=== PATIENT | female | born 1965 | race Caucasian/White ===

== ENCOUNTER → 2018-02-01 15:53 | Outpatient (CLI) | payer OTHER, SELFPAY ==
--- NOTE | 2018-02-01 15:57 | BI_ITS ---
MAMMOGRAPHY - BILATERAL SCREENING 3-D ROMÁN SYNTHESIS REASON FOR EXAM: Female, 52 years old. Bilateral Screening 3-D tomosynthesis PERTINENT HISTORY: No significant family history. TECHNIQUE: 2-D mammograms and 3-D Román synthesis of the breast (s) were performed. CAD was performed. COMPARISON: January 18, 2017. FINDINGS: The breast composition is composed of scattered fibroglandular density. Scattered benign calcifications are seen. No dense spiculated masses or suspicious microcalcifications are identified. No architectural distortion is identified. There is no skin thickening or retraction. There has been no significant change since the prior study. BI/SCREENING MAMM (CAD), BILAT IMPRESSION: No mammographic signs of malignancy. Routine yearly mammograms recommended. ASSESSMENT CATEGORY: BIRADS Category 2: Benign. A letter regarding these results will be sent to the patient by the facility within 30 days. FOLLOW UP RECOMMENDATION: Yearly follow up mammogram recommended. (A) Approximately 10% of breast cancers are not detected by mammography. A normal mammogram should not delay biopsy of a clinically suspicious abnormality. Electronically Signed: Shaw Barreto MD at 8:27 EDT , Service support ,
== END ==
PROVIDERS: Family Provider Family Medicine; PCP Family Medicine; Visit Provider Family Medicine
DX: Z12.31 Encounter for screening mammogram for malignant neoplasm of breast (principal)
CPT/HCPCS: 77063; 77067

== ENCOUNTER → 2018-02-07 16:24 | Outpatient (CLI) | payer OTHER, SELFPAY ==
--- NOTE | 2018-02-07 16:29 | RAD_ITS ---
STUDY: X-RAY - LEFT SHOULDER REASON FOR EXAM: Female, 52 years old. Left shoulder pain TECHNIQUE: 4 view(s) of the shoulder. COMPARISON: None. FINDINGS: Normal glenohumeral articulation. Normal acromioclavicular joint. Normal acromion. Normal humeral head and visualized proximal humerus. The soft tissue structures are unremarkable. Normal visualized pulmonary apex. RAD/Shoulder min 2 Views IMPRESSION: Normal x-ray examination of the shoulder. Electronically Signed: Memo Brown MD at 23:55 EDT , Service support ,
--- NOTE | 2018-02-07 16:29 | RAD_ITS ---
STUDY: X-RAY - CERVICAL SPINE REASON FOR EXAM: Female, 52 years old. Left shoulder and neck pain TECHNIQUE: 1 view(s) of the cervical spine were obtained. COMPARISON: None FINDINGS: The study is limited, with only a single lateral view obtained. The cervical vertebrae appear within normal limits in size, contour, and alignment. Disc spacing appears preserved. The spinous processes and prevertebral soft tissues are within normal limits. RAD/Cerv Spine 4 or 5 Views IMPRESSION: Limited study. The cervical spine appears within normal limits on this single lateral view. Electronically Signed: Memo Brown MD at 23:53 EDT , Service support ,
== END ==
PROVIDERS: Family Provider Family Medicine; PCP Family Medicine; Visit Provider Family Medicine
DX: M54.2 Cervicalgia (principal); M25.512 Pain in left shoulder
CPT/HCPCS: 72050; 73030

== ENCOUNTER → 2018-05-07 07:49 | Outpatient (CLI) | payer OTHER, SELFPAY ==
[2018-05-07 10:20] LABS: Absolute Lymphocyte Count 1.63 X10^3/ul (0.83-4.51); Absolute Neutrophil Count 2.7 X10^3/uL (2.0-7.7); Basophil# 0.02 X10^3/uL; Basophil% 0.4 % (0-1); Eosinophil# 0.18 X10^3/uL; Eosinophils% 3.6 % (0-5); Hemoglobin 13.5 g/dl (12.0-15.0); Lymphocyte # 1.63 X10^3/ul (4.0); Lymphocyte % 32.5 % (19-41); Mean Corp Hgb Conc 33.8 g/gl (32-36); Mean Corpuscular Hgb 28.3 pg (27.0-32.0); Mean Corpuscular Volume 83.9 fL (81-99); Mean Platelet Vol. 10.4 fl (6.2-12.0); Monocyte# 0.43 X10^3/uL; Monocyte% 8.6 % (0-10); Neutrophil # 2.74 X10^3/uL (2.7-7.7); Neutrophil % 54.7 % (47-70); Platelet Count 234 K/mm3 (150-450); RBC Distribution Width SD 39.2 fl (35.1-43.9); Red Blood Count 4.77 M/mm3 (4.2-5.4)
[2018-05-07 10:26] LABS: POSITIVE COUNT NO; POSITIVE DIFFERENTIAL NO; POSITIVE MORPHOLOGY NO
[2018-05-07 10:38] LABS: AST(SGOT) 35 U/L (15-37); Alanine Aminotransfer ALT/SGPT 65 U/L (13-56); Albumin, Serum 3.9 g/dL (3.2-5.0); Alkaline Phosphatase 85 U/L (45-117); Anion Gap 9 (5-15); BUN 12 mg/dL (7-18); BUN/Creat Ratio 13.5 RATIO (10-20); Calcium,Total 8.8 mg/dL (8.5-10.1); Chloride 106 mmol/L (98-107); Cholesterol 211 mg/dL (200); Creatinine, Serum 0.89 mg/dL (0.55-1.02); EST Glomerular Filtration Rate 71 mL/min (>60); Est Glom Filt Rate - Afr Amer 85 mL/min (>60); Globulin 3.8 g/dL (2.2-4.2); Glucose 91 mg/dL (74-106); High Density Lipoprotein 46 mg/dL; Potassium 3.6 mmol/L (3.5-5.1); Protein, Total 7.7 g/dL (6.4-8.2); Sodium Level 140 mmol/L (136-145); T4 Free Direct 0.75 ng/dL (0.76-1.46); Thyroid Stim Hormone (TSH) 3.25 uIU/mL (0.358-3.74); Triglycerides 152 mg/dL; Very Low Density Lipoprotein 30 mg/dL (5-40)
[2018-05-08 08:23] LABS: T3 Total - Triiodothyronine 1.26 ng/mL (0.6-1.81)
== END ==
PROVIDERS: Family Provider Family Medicine; PCP Family Medicine; Visit Provider Family Medicine
DX: E03.9 Hypothyroidism, unspecified (principal); R53.83 Other fatigue; Z13.220 Encounter for screening for lipoid disorders
CPT/HCPCS: 36415; 80053; 80061; 84439; 84443; 84480; 85025

== ENCOUNTER 2018-05-29 17:00 | Outpatient (RCR) | payer OTHER, SELFPAY ==
--- NOTE | 2018-04-24 18:12 | HP.PTEVAL_ITS ---
Patient's Visit Information ESTRELLITA PEARSON is a 53 year old F referred to Physical Therapy by Corey Hogan with a diagnosis of L chronic shld pain, ad capsulitis, and impingement. Date of Evaluation: 04/24/18 Physical Therapist: Rosa Demarco - Visit Plan Frequency: 2x /Week Duration: 6 Weeks Plan: 2X/ week for 6 weeks for L shoulder PROM, AAROM, AROM, joint mobs with HEP. - Subjective Subjective: Pt has limited use of L shoulder... doing better since meloxicam and injection (side of arm) but it is still not great. She not sure how she injured it. SHe can not lay on the L side and she is a L side sleeper. This has been going on since DECEMBER. THere is no N&T. SHe is R handed. 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 SHe can not lift over her head and can not take hand behind back and can not ER....she has a dull tooth ache in the anter shoulder and lateral shoulder. If it is really bother her then it will hurt up to the ear. X-ray was normal. She does not feel weakness in the L shoulder. Really stiff in the morning - Pain L shoulder pain Pain Intensity (Out of 10): 3 Pain Intensity Range: 8 - Objective R handed: R 65# and L 35#. R flexion 116 degrees and L 175 degrees. R ER 69 degrees and L ER 39 degrees. R IR T8 and L PSIS. R abd 180 degrees and L 70 degrees. L PROM: tight and painful at all end ranges. No anterior shoulder tenderness to palpation. - Goals Goal 1:: I HEP Goal Time Frame: 4-6 Weeks Goal 2:: Increase L shoulder AROM to 120 degrees elevation and L4 IR, and 45 ER. At time of eval: L 175 degrees. L ER 39 degrees. L PSIS. L 70 degrees Goal Time Frame: 4-6 Weeks Goal 3:: Decrease pain to 1/10 with ADL's Goal Time Frame: 4-6 Weeks - Rehabilitation Potential Rehabilitation Potential: Good - Anticipated Interventions Patient/Client Instruction: Educate patient on: Plan of Care For the Purpose of:: To decrease pain, To decrease swelling/inflammation, To increase ROM, To increase oxygenation perfusion, To improve muscle performance and motor function, To improve ability to perform ADL's, To increase tolerance to activity/condition/position, To improve health of tissue, To decrease soft tissue restriction, To increase flexibility/ROM Therapeutic Exercise to Include: Strength training, Postural training, Flexibilty training, Passive ROM, Active ROM, Scapular Strength/Stabilization For the Purpose of:: To decrease pain, To increase ROM, To improve nutrient delivery to tissue, To improve muscle performance and motor function, To improve ability to perform ADL's, To increase tolerance to activity/condition/ position, To improve performance and independence with ADL's, To improve ability of physical actions for home/community/work/leisure, To improve health of tissue, To increase flexibility/ROM Manual Therapy Techniques to Include: Mobilization, Passive ROM, Soft tissue mobilization For the Purpose of:: To decrease pain, To decrease swelling/inflammation, To increase ROM, To improve nutrient delivery to tissue, To improve muscle performance and motor function, To improve ability to perform ADL's, To increase tolerance to activity/condition/position, To improve health of tissue, To decrease soft tissue restriction, To increase flexibility/ROM IF ES: Yes Cryotherapy (ice pack, ice massage): Yes Thermo therapy (hot pack): Yes For the Purpose of:: To decrease pain, To decrease swelling/inflammation, To increase ROM, To improve nutrient delivery to tissue, To improve muscle performance and motor function Thank you for the opportunity to evaluate your patient. For Medicare and Medicare HMO plans, please review the plan of care and approve it. It will need to be FAXED BACK to us at [phone] for Medicare purposes. Please let me know if there are questions or concerns regarding this plan of care. Physician Signature: Date:
--- NOTE | 2018-08-09 13:08 | HP.PT.NRP ---
HP - Discharge Summary (1) - Patient Information ESTRELLITA PEARSON was seen in my office for initial evaluation on 04/24/18. The following Plan of Care was established for this patient: Initial Frequency: 2x /Week Initial Duration: 6 Weeks - Anticipated Interventions Patient/Client Instruction: Educate patient on: Plan of Care For the Purpose of:: To decrease pain, To decrease swelling/inflammation, To increase ROM, To increase oxygenation perfusion, To improve muscle performance and motor function, To improve ability to perform ADL's, To increase tolerance to activity/condition/position, To improve health of tissue, To decrease soft tissue restriction, To increase flexibility/ROM Therapeutic Exercise to Include: Strength training, Postural training, Flexibilty training, Passive ROM, Active ROM, Scapular Strength/Stabilization For the Purpose of:: To decrease pain, To increase ROM, To improve nutrient delivery to tissue, To improve muscle performance and motor function, To improve ability to perform ADL's, To increase tolerance to activity/condition/position, To improve performance and independence with ADL's, To improve ability of physical actions for home/community/work/leisure, To improve health of tissue, To increase flexibility/ROM Manual Therapy Techniques to Include: Mobilization, Passive ROM, Soft tissue mobilization For the Purpose of:: To decrease pain, To decrease swelling/inflammation, To increase ROM, To improve nutrient delivery to tissue, To improve muscle performance and motor function, To improve ability to perform ADL's, To increase tolerance to activity/condition/position, To improve health of tissue, To decrease soft tissue restriction, To increase flexibility/ROM IF ES: Yes Cryotherapy (ice pack, ice massage): Yes Thermo therapy (hot pack): Yes For the Purpose of:: To decrease pain, To decrease swelling/inflammation, To increase ROM, To improve nutrient delivery to tissue, To improve muscle performance and motor function This patient was last seen in our office 05/29/18. Pertinent comments regarding their Physical therapy will appear below: DC PT as pt did not schedule additional PT. At this point I will be discontinuing this patient from physical therapy. I would be happy to see this patient again in the future if found appropriate by the physician. Thank you! Rosa Demarco
== END 2018-05-29 19:00 | disposition home or self-care (01) ==
LOC: PT 17:00
PROVIDERS: Family Provider Family Medicine; PCP Family Medicine; Visit Provider Orthopaedic Surgery
DX: M25.512 Pain in left shoulder (principal); G89.29 Other chronic pain; M75.42 Impingement syndrome of left shoulder; M75.02 Adhesive capsulitis of left shoulder
CPT/HCPCS: 97110; 97140; 97161

== ENCOUNTER → 2019-02-14 | Outpatient (CLI) | payer OTHER, SELFPAY ==
--- NOTE | 2019-02-14 15:52 | BI_ITS ---
MAMMOGRAPHY - BILATERAL SCREENING 3-D TOMOSYNTHESIS REASON FOR EXAM: Female, 53 years old. Bilateral Screening 3-D tomosynthesis PERTINENT HISTORY: Paternal aunt at age 70 with breast cancer. History of cysts and clogged milk duct in the right breast.. TECHNIQUE: 2-D mammograms and 3-D Tomosynthesis of the breast (s) were performed. CAD was performed. COMPARISON: February 01, 2018. FINDINGS: The breast composition is composed of scattered fibroglandular density. Scattered benign calcifications are seen. No dense spiculated masses or suspicious microcalcifications are identified. No architectural distortion is identified. There is no skin thickening or retraction. There has been no significant change since the prior study. BI/SCREENING MAMM (CAD), BILAT IMPRESSION: No mammographic signs of malignancy. Routine yearly mammograms recommended. ASSESSMENT CATEGORY: BIRADS Category 1: Negative. A letter regarding these results will be sent to the patient by the facility within 30 days. FOLLOW UP RECOMMENDATION: Yearly follow up mammogram recommended. (A) Approximately 10% of breast cancers are not detected by mammography. A normal mammogram should not delay biopsy of a clinically suspicious abnormality. Electronically Signed: Shaw Barreto MD at 7:58 EDT , Service support ,
== END | disposition home or self-care (01) ==
PROVIDERS: Family Provider Family Medicine; PCP Family Medicine; Referring Provider Family Medicine; Visit Provider Family Medicine
DX: Z12.31 Encounter for screening mammogram for malignant neoplasm of breast (principal)
CPT/HCPCS: 77063; 77067

== ENCOUNTER → 2019-04-03 | Outpatient (CLI) | payer OTHER, SELFPAY ==
[2019-04-03 09:56] LABS: Absolute Lymphocyte Count 1.29 X10^3/ul (0.83-4.51); Absolute Neutrophil Count 2.6 X10^3/uL (2.0-7.7); Basophil# 0.06 X10^3/uL; Basophil% 1.4 % (0-1); Eosinophil# 0.14 X10^3/uL; Eosinophils% 3.2 % (0-5); Hematocrit 40.4 % (37-47); Hemoglobin 13.9 g/dl (12.0-15.0); Lymphocyte # 1.29 X10^3/ul (4.0); Lymphocyte % 29.3 % (19-41); Mean Corp Hgb Conc 34.4 g/gl (32-36); Mean Corpuscular Hgb 28.2 pg (27.0-32.0); Mean Corpuscular Volume 81.9 fL (81-99); Mean Platelet Vol. 10.2 fl (6.2-12.0); Monocyte# 0.36 X10^3/uL; Monocyte% 8.2 % (0-10); Neutrophil # 2.55 X10^3/uL (2.7-7.7); Neutrophil % 57.7 % (47-70); Platelet Count 235 K/mm3 (150-450); RBC Distribution Width CV 13.1 % (11.6-14.6); RBC Distribution Width SD 39.4 fl (35.1-43.9); Red Blood Count 4.93 M/mm3 (4.2-5.4); White Blood Count 4.4 K/mm3 (4.4-11.0)
[2019-04-03 10:16] LABS: POSITIVE COUNT NO; POSITIVE DIFFERENTIAL NO; POSITIVE MORPHOLOGY NO
[2019-04-03 10:48] LABS: ALB/GLOB Ratio 1.1 RATIO (0.9-2.4); AST(SGOT) 34 U/L (15-37); Alanine Aminotransfer ALT/SGPT 47 U/L (13-56); Alkaline Phosphatase 101 U/L (45-117); Anion Gap 8 (5-15); BUN 12 mg/dL (7-18); BUN/Creat Ratio 13.9 RATIO (10-20); Calcium,Total 9.4 mg/dL (8.5-10.1); Chloride 105 mmol/L (98-107); Cholesterol 214 mg/dL (200); Creatinine, Serum 0.86 mg/dL (0.55-1.02); EST Glomerular Filtration Rate 73 mL/min (>60); Est Glom Filt Rate - Afr Amer 88 mL/min (>60); Free T3 2.3 pg/mL (2.18-3.98); Globulin 3.8 g/dL (2.2-4.2); Glucose 94 mg/dL (74-106); High Density Lipoprotein 47 mg/dL; Potassium 3.5 mmol/L (3.5-5.1); Protein, Total 7.8 g/dL (6.4-8.2); Sodium Level 139 mmol/L (136-145); Thyroid Stim Hormone (TSH) 3.17 uIU/mL (0.358-3.74); Triglycerides 133 mg/dL; Very Low Density Lipoprotein 27 mg/dL (5-40)
== END | disposition home or self-care (01) ==
LOC: MTLAB 07:51
PROVIDERS: Family Provider Family Medicine; PCP Family Medicine; Referring Provider Family Medicine; Visit Provider Family Medicine
DX: E03.9 Hypothyroidism, unspecified (principal); E78.5 Hyperlipidemia, unspecified; R53.83 Other fatigue; Z51.81 Encounter for therapeutic drug level monitoring
CPT/HCPCS: 36415; 80053; 80061; 84439; 84443; 84481; 85025

== ENCOUNTER → 2020-02-20 12:13 | Outpatient (CLI) | payer OTHER, SELFPAY ==
--- NOTE | 2020-02-20 12:14 | BI_ITS ---
MAMMOGRAPHY - BILATERAL SCREENING REASON FOR EXAM: Female, 54 years old. Routine annual screening examination. PERTINENT HISTORY: Aunt with breast cancer. TECHNIQUE: Digital bilateral breast román (3D mammographic acquisition) in the CC and MLO projections. 2-D mediolateral oblique (MLO) and craniocaudad (CC) views of both breasts were obtained. CAD: Full Field Digital Mammography with Computer Added Detection was performed. COMPARISON: Comparison is made with prior study February 14, 2019 and February 01, 2018. FINDINGS: Breast Composition: There are scattered areas of fibroglandular density. There are no dominant masses or suspicious calcifications. Stable benign-appearing bilateral axillary lymph nodes. No other significant abnormalities are identified. There has been no significant change since the prior study. BI/SCREEN MAMM (CAD) W/ROMÁN BILAT IMPRESSION: Stable bilateral screening mammogram. Yearly follow-up mammogram recommended. (A) ASSESSMENT CATEGORY: BIRADS Category 2: Benign. A letter regarding these results will be sent to the patient by the facility within 30 days. Approximately 10% of breast cancers are not detected by mammography. A normal mammogram should not delay biopsy of a clinically suspicious abnormality. [id number] Electronically Signed: Ishmael Moreira, at 13:44 EDT , Service support ,
== END ==
PROVIDERS: PCP Family Medicine; Referring Provider Family Medicine; Visit Provider Family Medicine
DX: Z12.31 Encounter for screening mammogram for malignant neoplasm of breast (principal)
CPT/HCPCS: 77063; 77067

== ENCOUNTER → 2020-12-20 11:39 | Outpatient (CLI) | payer OTHER, SELFPAY ==
[2020-12-20 15:29] LABS: Absolute Lymphocyte Count 1.26 X10^3/uL (0.83-4.51); Basophil# 0.03 X10^3/uL; Basophil% 0.6 % (0-1); Eosinophil# 0.13 X10^3/uL; Eosinophils% 2.7 % (0-5); Hematocrit 42.9 % (37-47); Hemoglobin 14.4 g/dL (12.0-15.0); Lymphocyte # 1.26 X10^3/ul (4.0); Lymphocyte % 26.3 % (19-41); Mean Corp Hgb Conc 33.6 g/dL (32-36); Mean Corpuscular Hgb 27.6 pg (27.0-32.0); Mean Corpuscular Volume 82.2 fL (81-99); Mean Platelet Vol. 10.8 fl (6.2-12.0); Monocyte# 0.36 X10^3/uL; Monocyte% 7.5 % (0-10); NRBC Flagged by Analyzer 0 % (0-5); Neutrophil # 3.01 X10^3/uL (2.7-7.7); Neutrophil % 62.7 % (47-70); Platelet Count 249 K/mm3 (150-450); RBC Distribution Width CV 12.2 % (11.6-14.6); RBC Distribution Width SD 37.3 fl (35.1-43.9); Red Blood Count 5.22 M/mm3 (4.2-5.4); White Blood Count 4.8 K/mm3 (4.4-11.0)
[2020-12-20 16:15] LABS: AST(SGOT) 48 U/L (15-37); Alanine Aminotransfer ALT/SGPT 94 U/L (13-56); Albumin, Serum 4.1 g/dL (3.2-5.0); Alkaline Phosphatase 109 U/L (45-117); Anion Gap 6 (5-15); BUN 10 mg/dL (7-18); BUN/Creat Ratio 13.8 RATIO (10-20); Calcium,Total 9.3 mg/dL (8.5-10.1); Chloride 105 mmol/L (98-107); Cholesterol 220 mg/dL (200); Creatinine, Serum 0.72 mg/dL (0.55-1.02); EST Glomerular Filtration Rate 88 mL/min (>60); Est Glom Filt Rate - Afr Amer 107 mL/min (>60); Free T3 2.3 pg/mL (2.18-3.98); Globulin 4.1 g/dL (2.2-4.2); Glucose 87 mg/dL (74-106); High Density Lipoprotein 42 mg/dL; Potassium 3.6 mmol/L (3.5-5.1); Protein, Total 8.2 g/dL (6.4-8.2); Sodium Level 140 mmol/L (136-145); T4 Free Direct 0.87 ng/dL (0.76-1.46); Thyroid Stim Hormone (TSH) 2.13 uIU/mL (0.358-3.74); Triglycerides 171 mg/dL; Very Low Density Lipoprotein 34 mg/dL (5-40)
== END ==
PROVIDERS: PCP Family Medicine; Referring Provider Family Medicine; Visit Provider Family Medicine
DX: E03.9 Hypothyroidism, unspecified (principal); E78.5 Hyperlipidemia, unspecified; R53.83 Other fatigue; Z51.81 Encounter for therapeutic drug level monitoring
CPT/HCPCS: 36415; 80053; 80061; 84439; 84443; 84481; 85025

== ENCOUNTER → 2021-04-11 11:24 | Outpatient (CLI) | payer OTHER, SELFPAY ==
--- NOTE | 2021-04-11 11:28 | BI_ITS ---
MAMMOGRAPHY - BILATERAL SCREENING REASON FOR EXAM: Female, 56 years old. Routine annual screening examination. PERTINENT HISTORY: Aunt with breast cancer. TECHNIQUE: Digital bilateral breast román (3D mammographic acquisition) in the CC and MLO projections. 2-D mediolateral oblique (MLO) and craniocaudad (CC) views of both breasts were obtained. CAD: Full Field Digital Mammography with Computer Added Detection was performed. COMPARISON: Comparison is made with prior study dated 02/20/2020 and 02/14/2019. FINDINGS: Breast Composition: The breasts are heterogeneously dense, which may obscure small masses. There are no dominant masses or suspicious calcifications. Stable small benign-appearing bilateral axillary lymph nodes. No other significant abnormalities are identified. There has been no significant change since the prior study. BI/SCRN MAMM (CAD)W/ROMÁN BILAT IMPRESSION: Stable bilateral screening mammogram. Yearly follow-up mammogram recommended. (A) ASSESSMENT CATEGORY: BIRADS Category 2: Benign. A letter regarding these results will be sent to the patient by the facility within 30 days. Approximately 10% of breast cancers are not detected by mammography. A normal mammogram should not delay biopsy of a clinically suspicious abnormality. [id number] Electronically Signed: Ishmael Moreira MD at 12:33 EDT , Service support ,
== END ==
PROVIDERS: PCP Family Medicine; Referring Provider Family Medicine; Visit Provider Family Medicine
DX: Z12.31 Encounter for screening mammogram for malignant neoplasm of breast (principal)
CPT/HCPCS: 77063; 77067

== ENCOUNTER 2021-10-19 15:38 | Outpatient (CLI) | payer OTHER, SELFPAY ==
--- NOTE | 2021-10-19 15:44 | RAD_ITS ---
History: COUGH, POST COVID EXAMINATION/TECHNIQUE: XR Chest 2 Views: COMPARISON: None FINDINGS: LINES/DEVICES: None. LUNGS: Patchy airspace opacification throughout both lungs consistent with pneumonia and compatible with Covid infection. No pneumothorax. MEDIASTINUM AND CARDIOVASCULAR STRUCTURES: Cardiac silhouette not enlarged. Central airways and mediastinal contour are unremarkable. BONES AND SOFT TISSUES: Unremarkable. RAD/Chest PA and Lateral IMPRESSION: Bilateral pneumonia. at 1556 Reported and signed by: Jeromy Contreras MD Electronically Signed: Jeromy Contreras MD at 15:55 EST Tel , Service support ,
== END 2021-10-19 23:59 | disposition short-term general hospital (02) ==
PROVIDERS: PCP Family Medicine; Referring Provider Family Medicine; Visit Provider Family Medicine
DX: U07.1 COVID-19 (principal); R05.9 Cough, unspecified
CPT/HCPCS: 71046

== ENCOUNTER 2021-10-27 08:11 | Outpatient (CLI) | payer OTHER, SELFPAY | END 2021-10-27 23:59 | disposition short-term general hospital (02) | PROVIDERS: Visit Provider Family Medicine | DX: Z20.828 Contact with and (suspected) exposure to other viral communicable diseases (principal) | CPT/HCPCS: 87635; U0003; U0005 ==

== ENCOUNTER 2022-01-16 07:47 | Outpatient (CLI) | payer OTHER, SELFPAY ==
[2022-01-16 08:13] LABS: Absolute Lymphocyte Count 1.62 X10^3/uL (0.83-4.51); Absolute Neutrophil Count 2.9 X10^3/uL (2.0-7.7); Basophil# 0.03 X10^3/uL; Basophil% 0.6 % (0-1); Eosinophil# 0.13 X10^3/uL; Eosinophils% 2.5 % (0-5); Hematocrit 42.5 % (37-47); Hemoglobin 14.8 g/dL (12.0-15.0); Lymphocyte # 1.62 X10^3/ul (0.83-4.51); Lymphocyte % 31.5 % (19-41); Mean Corp Hgb Conc 34.8 g/dL (32-36); Mean Corpuscular Volume 83.3 fL (81-99); Mean Platelet Vol. 10.3 fl (6.2-12.0); Monocyte# 0.46 X10^3/uL; Monocyte% 8.9 % (0-10); NRBC Flagged by Analyzer 0 % (0-5); Neutrophil # 2.89 X10^3/uL (2.7-7.7); Neutrophil % 56.1 % (47-70); Platelet Count 266 K/mm3 (150-450); RBC Distribution Width CV 12.2 % (11.6-14.6); RBC Distribution Width SD 37.2 fl (35.1-43.9); White Blood Count 5.2 K/mm3 (4.4-11.0)
[2022-01-16 08:44] LABS: ALB/GLOB Ratio 1.1 RATIO (0.9-2.4); AST(SGOT) 52 U/L (15-37); Alanine Aminotransfer ALT/SGPT 95 U/L (13-56); Albumin, Serum 4.1 g/dL (3.2-5.0); Alkaline Phosphatase 89 U/L (45-117); Anion Gap 7 (5-15); BUN 12 mg/dL (7-18); BUN/Creat Ratio 15.3 RATIO (10-20); Calcium,Total 9.2 mg/dL (8.5-10.1); Chloride 105 mmol/L (98-107); Cholesterol 216 mg/dL (200); Creatinine, Serum 0.78 mg/dL (0.55-1.02); EST Glomerular Filtration Rate 80 mL/min (>60); Est Glom Filt Rate - Afr Amer 97 mL/min (>60); Free T3 3.2 pg/mL (2.18-3.98); Globulin 3.9 g/dL (2.2-4.2); Glucose 115 mg/dL (74-106); High Density Lipoprotein 48 mg/dL; Potassium 3.9 mmol/L (3.5-5.1); Sodium Level 139 mmol/L (136-145); T4 Free Direct 0.88 ng/dL (0.76-1.46); Thyroid Stim Hormone (TSH) 0.31 uIU/mL (0.358-3.74); Triglycerides 171 mg/dL; Very Low Density Lipoprotein 34 mg/dL (5-40)
[2022-01-16 08:51] LABS: Vitamin B12 591 pg/mL (211-911)
[2022-01-17 16:09] LABS: Thyroid Peroxidase AB 8 IU/mL (0-34)
[2022-01-17 16:25] LABS: Thyroglobulin Antibody < 1.0 IU/mL (0.0-0.9)
== END 2022-01-16 23:59 | disposition home or self-care (01) ==
LOC: PAVLAB 07:49
PROVIDERS: PCP Family Medicine; Referring Provider Family Medicine; Visit Provider Family Medicine
DX: E03.9 Hypothyroidism, unspecified (principal); E53.8 Deficiency of other specified B group vitamins; E78.5 Hyperlipidemia, unspecified; Z51.81 Encounter for therapeutic drug level monitoring
CPT/HCPCS: 36415; 80053; 80061; 82607; 84439; 84443; 84481; 85025; 86376; 86800

== ENCOUNTER → 2022-04-04 | Outpatient (CLI) | payer OTHER, SELFPAY ==
[2022-04-04 08:54] LABS: Free T3 5.7 pg/mL (2.18-3.98); T4 Free Direct 1.52 ng/dL (0.76-1.46); Thyroid Stim Hormone (TSH) < 0.01 uIU/mL (0.358-3.74)
== END | disposition home or self-care (01) ==
LOC: PAVLAB 07:48
PROVIDERS: PCP Family Medicine; Referring Provider Family Medicine; Visit Provider Family Medicine
DX: E03.9 Hypothyroidism, unspecified (principal)
CPT/HCPCS: 36415; 84439; 84443; 84481

== ENCOUNTER → 2022-04-13 | Outpatient (CLI) | payer OTHER, SELFPAY ==
--- NOTE | 2022-04-13 10:13 | BI_ITS ---
MAMMOGRAPHY - BILATERAL SCREENING REASON FOR EXAM: Female, 57 years old. Routine annual screening examination. PERTINENT HISTORY: Aunt with breast cancer. TECHNIQUE: Digital bilateral breast román (3D mammographic acquisition) in the CC and MLO projections. 2-D mediolateral oblique (MLO) and craniocaudad (CC) views of both breasts were obtained. CAD: Full Field Digital Mammography with Computer Added Detection was performed. COMPARISON: Comparison is made with prior study dated 04/11/2021 and 02/20/2020. FINDINGS: Breast Composition: The breasts are heterogeneously dense, which may obscure small masses. There are no dominant masses or suspicious calcifications. Stable small benign-appearing bilateral axillary vessels. No other significant abnormalities are identified. There has been no significant change since the prior study. BI/SCRN MAMM (CAD)W/ROMÁN BILAT IMPRESSION: Stable bilateral screening mammogram. Yearly follow-up mammogram recommended. (A) ASSESSMENT CATEGORY: BIRADS Category 2: Benign. A letter regarding these results will be sent to the patient by the facility within 30 days. Approximately 10% of breast cancers are not detected by mammography. A normal mammogram should not delay biopsy of a clinically suspicious abnormality. [id number] Electronically Signed: Ishmael Moreira MD at 11:02 EDT ,
== END | disposition home or self-care (01) ==
LOC: OPBI 10:10
PROVIDERS: PCP Family Medicine; Referring Provider Family Medicine; Visit Provider Family Medicine
DX: Z12.31 Encounter for screening mammogram for malignant neoplasm of breast (principal)
CPT/HCPCS: 77063; 77067

== ENCOUNTER → 2023-04-20 | Outpatient (CLI) | payer OTHER, SELFPAY ==
--- NOTE | 2023-04-20 13:39 | BI_ITS ---
MAMMOGRAPHY - BILATERAL SCREENING REASON FOR EXAM: Female, 58 years old. Routine annual screening examination. PERTINENT HISTORY: Aunt with breast cancer. TECHNIQUE: Digital bilateral breast román (3D mammographic acquisition) in the CC and MLO projections. 2-D mediolateral oblique (MLO) and craniocaudad (CC) views of both breasts were obtained. CAD: Full Field Digital Mammography with Computer Added Detection was performed. COMPARISON: Comparison is made with prior study April 13, 2022 and April 11, 2021. FINDINGS: Breast Composition: The breasts are heterogeneously dense, which may obscure small masses. There are no dominant masses or suspicious calcifications. Stable benign-appearing bilateral axillary lymph nodes. No other significant abnormalities are identified. There has been no significant change since the prior study. BI/SCRN MAMM (CAD)W/ROMÁN BILAT IMPRESSION: Stable bilateral screening mammogram. Yearly follow-up mammogram recommended. (A) ASSESSMENT CATEGORY: BIRADS Category 1: Negative. A letter regarding these results will be sent to the patient by the facility within 30 days. Approximately 10% of breast cancers are not detected by mammography. A normal mammogram should not delay biopsy of a clinically suspicious abnormality. [id number] Electronically Signed: Ishmael Moreira MD at 8:35 EDT ,
== END | disposition home or self-care (01) ==
LOC: OPBI 13:37
PROVIDERS: PCP Family Medicine; Visit Provider Family Medicine
DX: Z12.31 Encounter for screening mammogram for malignant neoplasm of breast (principal)
CPT/HCPCS: 77063; 77067

== ENCOUNTER → 2023-10-16 | Outpatient (CLI) | payer OTHER, SELFPAY ==
--- OUTSIDE RECORDS SUMMARY | 2023-10-16 13:00 | XMS RPT_ITS | CCD ---
Author Name Unknown Address [address] [place] [address] Organization [facility] Care Team Providers Care Cotton Jammer Name Role Phone Cassie Aponte LPN Unavailable Unavailab Cassie Duncan LPN Unavailable Unavailab Prince Aguilar Unavailable Prince Ayers Unavailable [phone] Cassie Aponte LPN Unavailable Unavailab Francy Pacheco DO Primary Care Provider [phone] Francy Will DO Primary Care Provider SHAHBAZ TA Attending Unavailable SELF Referring Unavailable FRANCY WILL Primary Care Unavailable Allergies Allergy Classification Reported Allergen(s) Allergy Type Date of Onset Reaction(s) Facility (5 sources) acetaminophen / HYDROcodone Drug Allergy 6 lip swelling, itching [facility] Work Phone: (5 sources) cephalexin Drug Allergy Deep seated yeast infection [facility] Work Phone: (8 sources) codeine; Translations: [CODEINE] Drug Allergy 6 [facility] Work Phone: (5 sources) Shellfish; Translations: [SHELLFISH] food allergy 0 [facility] Work Phone: (5 sources) Shrimp product; Translations: [SHRIMP] food allergy 0 [facility] Work Phone: (8 sources) Tree; Translations: [TREES] drug allergy 6 itching, hives, breathing problems [facility] Work Phone: (5 sources) BAND-AID MEDICATED STRIPS drug allergy 6 Skin itching, swelling, seeping [facility] Work Phone: (5 sources) ADHESIVE PAPER drug allergy 6 Skin itching, swelling, seeping [facility] Work Phone: (5 sources) GRASS drug allergy 6 Itching, hives breathing problems [facility] Work Phone: (5 sources) WHOLE GRAIN; Translations: [WHOLE GRAIN] food allergy 0 [facility] Work Phone: (5 sources) NOVOCAIN drug allergy 0 [facility] Work Phone: (5 sources) IODINE TINCTURE drug allergy 7 [facility] Work Phone: (3 sources) Adhesive Tape; Translations: [ADHESIVE TAPE (ROSINS)] Propensity to adverse reactions 6 [facility] Work Phone: (3 sources) Cephalexin; Translations: [CEPHALEXIN] Drug Allergy 4 Rash [facility] (3 sources) Ciprofloxacin; Translations: [CIPROFLOXACIN] Drug Allergy 0 Hives [facility] (3 sources) Dust; Translations: [DUST] Propensity to adverse reactions 6 [facility] Work Phone: (3 sources) Grass pollen; Translations: [GRASS POLLEN] Propensity to adverse reactions 6 [facility] Work Phone: (3 sources) Wheat flour; Translations: [WHEAT FLOUR] Propensity to adverse reactions 6 [facility] Work Phone: [phone] (2 sources) shell fish [Other] Propensity to adverse reactions 8 [facility] Work Phone: (2 sources) SHRIMP [Other] Propensity to adverse reactions 6 [facility] Work Phone: (1 source) OTHER; Translations: [OTHER] Propensity to adverse reactions (disorder) 8 [facility] Medications Completed/Discontinued Medications Medication Drug Class(es) Dates Sig (Normalized) Sig (Original) amoxicillin 875 mg / clavulanate 125 mg oral tablet (15 sources) Penicillin-class Antibacterial Start: 02-14-2012 End: 12-30-2015 take 1 tablet by mouth twice daily AUGMENTIN 875-125 MG TABS One tablet by mouth twice daily. AMOXICILLIN-POT CLAVULANATE [id number] Francy Will, DO Problems Active Problems Problem Classification Problem Date Documented Da te Episodic/Chronic Other nutritional; endocrine; and metabolic disorders (3 sources) Obese class I; Translations: [Obesity, unspecified] Onset: 04-18-2022 Chronic Other upper respiratory disease (7 sources) Allergic rhinitis; Translations: [Allergic rhinitis, unspecified] Onset: 12-05-2007 10-29-2009 Chronic Past or Other Problems Problem Classification Problem Date Documented Date Episodic/Chronic Allergic reactions (4 sources) Allergy to food; Translations: [Allergy to other foods] Onset: 12-05-2007 12-05-2007 Episodic Other female genital disorders (2 sources) Cervical intraepithelial neoplasia grade 2; Translations: [Moderate cervical dysplasia] Onset: 04-29-2013 10-10-2021 Episodic Other non-traumatic joint disorders (1 source) Shoulder pain; Translations: [Pain in left shoulder] Onset: 05-29-2018 07-23-2018 Episodic Other non-traumatic joint disorders (1 source) Pain in left shoulder; Translations: [Pain in joint, shoulder region] Onset: 05-29-2018 07-23-2018 Episodic Spondylosis; intervertebral disc disorders; other back problems (10 sources) Lumbar radiculopathy; Translations: [Acute low back pain] Onset: 05-23-2016 05-23-2016 Episodic Sprains and strains (20 sources) Strain of extensor muscle, fascia and tendon of right middle finger at forearm level, initial encounter; Translations: [Strain of unspecified muscle, fascia and tendon at wrist and hand level, right hand, initial encounter] Onset: 08-06-2017 08-08-2017 Episodic Superficial injury; contusion (10 sources) Contusion of right knee, initial encounter; Translations: [Contusion of left knee, initial encounter] Onset: 08-06-2017 08-06-2017 Episodic Results Test Name Value Interpretation Reference Range Facil ity Vital Signs Date Time Vital Sign Value Performing Clinician Adánparveen brian 04-18-2023 14:02-0400 Body height 157.5 cm Shahbaz Ta MD Work Phone: [facility] 04-18-2023 14:02-0400 Body weight 76.2 kg Shahbaz Ta MD Work Phone: [facility] 04-18-2023 14:02-0400 Diastolic blood pressure 68 mm[Hg] Shahbaz Ta MD Work Phone: [facility] 04-18-2023 14:02-0400 Systolic blood pressure 122 mm[Hg] Shahbaz Ta MD Work Phone: [facility] 04-18-2022 16:06-0400 Body height 157.5 cm Shahbaz Ta MD Work Phone: [facility] 04-18-2022 16:06-0400 Body weight 74.84 kg Shahbaz Ta MD Work Phone: [facility] 04-18-2022 16:06-0400 Diastolic blood pressure 72 mm[Hg] Shahbaz Ta MD Work Phone: [facility] 04-18-2022 16:06-0400 Systolic blood pressure 126 mm[Hg] Shahbaz Ta MD Work Phone: [facility] 08-27-2017 11:29-0500 BMI (Body Mass Index) 28.38 kg/m2 Cassie Aponte LPN [facility] Work Phone: 08-27-2017 11:29-0500 Body Temperature 98.5 [degF] Cassie Aponte LPN [facility] Work Phone: 08-27-2017 11:29-0500 BP Diastolic 76 mm[Hg] Cassie Aponte LPN [facility] Work Phone: 08-27-2017 11:29-0500 BP Systolic 122 mm[Hg] Cassie Aponte LPN [facility] Work Phone: 08-27-2017 11:29-0500 Height 160.02 cm Cassie Aponte LPN [facility] Work Phone: 08-27-2017 11:29-0500 Pulse (Heart Rate) 88 /min Cassie Aponte LPN [facility] Work Phone: 08-27-2017 11:29-0500 Respiratory Rate 13 /min Cassie Aponte LPN [facility] Work Phone: 08-27-2017 11:29-0500 Weight 72.67 kg Cassie Aponte LPN [facility] Work Phone: 08-13-2017 11:36-0400 Pulse (Heart Rate) 80 /min Prince GIFFORD [facility] Work Phone: 08-13-2017 11:36-0400 Respiratory Rate 14 /min Prince GIFFORD [facility] Work Phone: 08-06-2017 13:42-0400 Body height 160.02 cm Cassie Aponte LPN [facility] Work Phone: 08-06-2017 13:42-0400 Body mass index (BMI) [Ratio] 28.8 kg/m2 Cassie Aponte LPN [facility] Work Phone: 08-06-2017 13:42-0400 Body temperature 98.5 [degF] Cassie Aponte LPN [facility]onna Work Phone: 08-06-2017 13:42-0400 Body weight 73.76 kg Cassie Aponte LPN [facility] Work Phone: 08-06-2017 13:42-0400 Diastolic blood pressure 78 mm[Hg] Cassie Aponte LPN [facility] Work Phone: 08-06-2017 13:42-0400 Heart rate 88 /min Cassie Aponte LPN [facility] Work Phone: 08-06-2017 13:42-0400 Respiratory rate 14 /min Cassie Aponte LPN [facility]onna Work Phone: 08-06-2017 13:42-0400 Systolic blood pressure 120 mm[Hg] Cassie Aponte LPN [facility] Work Phone: 08-06-2017 13:42-0400 Weight 73.76 kg Prince GIFFORD [facility] Work Phone: 08-06-2009 14:15-0400 Body height 160.02 cm Cassie Aponte LPN [facility] Work Phone: 08-06-2009 14:15-0400 Body surface area Derived from formula 1.76 m2 Cassie Aponte LPN [facility] Work Phone: 08-06-2009 14:15-0400 Body weight 72.39 kg Cassie Aponte LPN [facility] Work Phone: 08-06-2009 14:15-0400 Weight 72.39 kg Prince GIFFORD [facility] Work Phone: Encounters Encounter Date Encounter Type Care Provider Facility Start: 04-18-2023 End: 04-18-2023 ambulatory SHAHBAZ TA Facility:[facility] Start: 04-18-2023 End: 04-18-2023 Patient encounter procedure Shahbaz Ta MD Work Phone: OB/Gynecology Procedures Date Procedure Procedure Detail Performing Clinician Start: 04-13-2022 Mammography Shahbaz wright MD Work Phone: Start: 08-06-2017 End: 08-06-2017 Documentation of current medications Cassie Aponte LPN Start: 05-23-2016 End: 05-23-2016 Therapeutic prophylactic/dx injection subq/im Valencia Lakhani [facility] Work Phone: Start: 05-23-2016 End: 05-23-2016 Toradol 30 mg Valencia Lakhani [facility] Work Phone: Start: 05-23-2016 End: 05-23-2016 Ketorolac tromethamine inj Valencia hernandez [facility] Work Phone: Start: 05-23-2016 End: 05-23-2016 Therapeutic prophylactic/dx injection subq/im Valencia Lakhani [facility] Work Phone: Start: 06-29-2014 Colonoscopy Shahbaz wright MD Work Phone: Plan of Treatment Date Care Activity Detail Author Start: 06-29-2024 Colonoscopy COLONOSCOPY [facility] Start: 06-29-2024 COLORECTAL CANCER SCREENING COLORECTAL CANCER SCREENING [facility] Start: 07-23-2023 HPV TESTING HPV TESTING [facility] Start: 07-23-2023 PAP TESTING PAP TESTING [facility] Start: 06-15-2023 Influenza vaccination INFLUENZA (#1) [facility] Start: 04-13-2023 Mammography MAMMOGRAM [facility] Start: 10-15-2022 DEPRESSION ASSESSMENT DEPRESSION ASSESSMENT [facility] Start: 06-15-2022 Influenza vaccination INFLUENZA (#1) [facility] Start: 08-27-2017 End: 08-27-2017 Appointment Appointment [facility] Work Phone: Start: 08-13-2017 End: 08-13-2017 Appointment Appointment [facility] Work Phone: Start: 08-06-2017 End: 08-06-2017 Patient encounter procedure Appointment [facility] Work Phone: Start: 08-06-2017 End: 08-06-2017 Radex hand minimum 3 views X-Ray, Hand [facility] Work Phone: Start: 08-06-2017 End: 08-06-2017 Radex spine lumbosacral minimum 4 views X-Ray, Spine, Lumbosacral 4 views [facility] Work Phone: Start: 08-06-2017 End: 08-06-2017 Radex wrist complete minimum 3 views X-Ray, Wrist [facility] Work Phone: Start: 08-06-2017 End: 08-06-2017 Radex hand minimum 3 views X-Ray, Hand [facility] Work Phone: Start: 08-06-2017 End: 08-06-2017 Radex spine lumbosacral minimum 4 views X-Ray, Spine, Lumbosacral 4 views [facility] Work Phone: Start: 08-06-2017 End: 08-06-2017 Radex wrist complete minimum 3 views X-Ray, Wrist [facility] Work Phone: Start: 05-23-2016 End: 05-23-2016 Physical Therapy General Physical Therapy [facility], [address] [place] [address], [id number] [facility] Work Phone: Start: 05-23-2016 End: 05-23-2016 Radex spine lumbosacral minimum 4 views X-Ray, Spine, Lumbosacral 2-3 views [facility] Work Phone: Start: 05-23-2016 End: 05-23-2016 Physical Therapy General Physical Therapy [facility], [address] [place] [address], [id number] [facility] Work Phone: Start: 05-23-2016 End: 05-23-2016 Radex spine lumbosacral minimum 4 views X-Ray, Spine, Lumbosacral 2-3 views [facility] Work Phone: Start: 01-14-2016 Urine microalbumin profile DTAP,TDAP,TD (2 - Tdap) [facility] Start: 2014 SHINGRIX VACCINE (1 of 2) SHINGRIX VACCINE (1 of 2) [facility] Start: 12-12-2012 LIPID SCREEN LIPID SCREEN [facility] Start: 2009 COLOGUARD (FIT-DNA) COLOGUARD (FIT-DNA) [facility] Start: [address] COLONOGRAPHY [facility] Start: 2009 DIABETES SCREEN DIABETES SCREEN [facility] Start: 2009 FECAL OCCULT BLOOD FECAL OCCULT BLOOD [facility] Start: 05-18-2009 SIGMOIDOSCOPY SIGMOIDOSCOPY [facility] Start: 1982 HEPATITIS C SCREENING HEPATITIS C SCREENING [facility] Start: 1982 HIV SCREENING HIV SCREENING [facility] Start: 1976 Adult depression screening assessment DEPRESSION SCREENING [facility] Start: 1964 COVID-19 VACCINE (#1) COVID-19 VACCINE (#1) [facility] Immunizations Immunization Date Immunization Notes Care Provider Fa cility 08-23-2020 influenza, seasonal, injectable Shahbaz Ta MD Work Phone: [facility] Work Phone: 07-30-2019 influenza, seasonal, injectable Shahbaz Ta MD Work Phone: [facility] Work Phone: 07-24-2018 influenza, seasonal, injectable Shahbaz Ta MD Work Phone: [facility] Work Phone: 08-01-2017 influenza, seasonal, injectable Shahbaz Ta MD Work Phone: [facility] Work Phone: 07-19-2016 influenza, seasonal, injectable Shahbaz Ta MD Work Phone: [facility] Work Phone: 07-19-2016 influenza, seasonal, injectable, preservative free Shahbaz Ta MD Work Phone: [facility] Work Phone: 07-28-2015 influenza, seasonal, injectable Shahbaz Ta MD Work Phone: [facility] Work Phone: 07-28-2015 influenza, seasonal, injectable, preservative free Shahbaz Ta MD Work Phone: [facility] Work Phone: 08-05-2014 influenza, seasonal, injectable Shahbaz Ta MD Work Phone: [facility] Work Phone: 08-05-2014 influenza, seasonal, injectable, preservative free Shahbaz Ta MD Work Phone: [facility] Work Phone: 01-13-2006 diphtheria and tetan us toxoids, adsorbed for pediatric use Shahbaz Ta MD Work Phone: [facility] Work Phone: 01-13-2006 hepatitis B vaccine, adult dosage Shahbaz Ta MD Work Phone: [facility] Work Phone: 01-13-2006 measles, mumps and rubella virus vaccine Shahbaz Ta MD Work Phone: [facility] Work Phone: 11-15-2005 hepatitis B vaccine, adult dosage Shahbaz Ta MD Work Phone: [facility] Work Phone: 09-14-2005 hepatitis B vaccine, adult dosage Shahbaz Ta MD Work Phone: [facility] Work Phone: Payers Date Payer Category Payer Private Health Insurance AESELVIN Aguilar [email or web address] [id number] 2022-Present [phone] [address] [place] [address] PPO [id number] 2022 Private Health Insurance [id number] 2019 Unknown REFERENCE BASED PA[employer]ER [employer] [id number] 2019-Present [phone] [place] [address] Other [id number] 2017 Private Health Insurance [employer] PPO [id number] 2017-Present [phone] [address] [place] [address] PPO [id number] Social History Date Type Detail Facility Start: 04-18-2023 Tobacco smoking stat us PAIS Never smoked tobacco [facility] Start: 04-18-2022 End: 04-18-2023 Alcohol intake Current drinker of alcohol (finding) [facility] Start: 1965 Sex Assigned At Not on file C [facility] Start: 04-08-2022 End: 04-18-2022 Exposure to SARS-CoV-2 (event) Not sure [facility] Start: 04-18-2023 Tobacco use and exposure Smokeless tobacco non-user [facility] Work Phone: Progress note 04-18-2023 Note Date & Type Note Facility 04-18-2023 Note HNO ID: [id number] Author: Shahbaz Ta MD Service: ? Author Type: Physician Type: Progress Notes Filed: 04/18/2023 2:27 PM Note Text: Antonina is a 58 year old who presents for an annual gynecologic exam without complaints. Postmenopausal: yes HRT use: No. Last Pap: 07/31/2018 normal HPV: 07/29/2018 negative History of abnormal pap: No Last mammogram: pending in 2 days History of abnormal mammogram: No Sexually active: Yes OB History T0 L4 SAB0 IAB0 Ectopic0 Multiple0 Live Births0 Glass Tinter History LMP: Hysterectomy Age at Menarche: Age at First : Age at Menopause: Glass Tinter History Comments: Sexual Activity: Yes; Male; Contraception: No contraception data on record PAST MEDICAL HISTORY Diagnosis Date Allergy, unspecified not elsewhere classified WHITNEY II (cervical intraepithelial neoplasia II) 2009 h/o persistent WHITNEY, Hypothyroid 2016 PAST SURGICAL HISTORY Procedure Laterality Date APPENDECTOMY 03/19 DELIVERY ONLY 1988 , low cervical COLONOSCOPY FLX DX W/COLLJ SPEC WHEN PFRMD 06/29/2014 Colonoscopy CORRECT BUNION,SIMPLE 2001 Bunion RIGHT HYSTERECTOMY AND VAGINA REPAIR ENTEROCELE 2010 LAPAROSCOPY SURG CHOLECYSTECTOMY 1998 Cholecystectomy, lap LEEP 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 (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)_*FL 2008 LIG/TRNSXJ FLP TUBE ABDL/VAG APPR UNI/BI 1990 Tubal ligation PAST SURGICAL HISTORY OF 1990 CERVICAL LASER SURGERY SALPINGO-OOPHORECTOMY COMPL/PRTL UNI/BI SPX 03/19 Vyqgjbrj-hsunclocafyh-hitbp ovary FAMILY HISTORY Problem Relation Age of Onset Arthritis Mother rheumatoid and osteoarthritis Ovarian cancer Mother other (LUPUS) Mother other (Other) Mother benign brain tumor other (lung cancer) Father other (UTERINE CANCER) Maternal Grandmother Heart Maternal Grandfather other (LUPUS) Sister other (LUPUS) Maternal Aunt SOCIAL HISTORY Social History Tobacco Use Smoking status: Never Smokeless tobacco: Never Vaping Use Vaping Use: Never used Substance Use Topics Alcohol use: Yes Comment: occasional Drug use: No REVIEW OF SYSTEMS Abdomen: No abdominal pain, nausea, vomiting, diarrhea, or constipation. No bloating, early satiety, indigestion, or increased flatulence. Bladder: No dysuria, gross hematuria, urinary frequency, urinary urgency, or incontinence Breast: No breast lumps, nipple d/c, overlying skin changes, redness or skin retraction Allergies and current medication updated:Yes EXAM: There were no vitals taken for this visit. GENERAL: pleasant, female in no apparent distress HEENT: Normocephalic, atraumatic, mucus membranes moist, and no lesions NECK: Supple, full range of motion, no adenopathy, and thyroid normal DERMATOLOGY: Normal, without lesions, non-icteric, and non-hirsute BREAST: soft, non-tender, symmetric, no dominant mass, normal nipple-areolar complex, no lymphadenopathy, and no nipple discharge CHEST: Normal inspiratory effort ABDOMEN: soft, non-tender, and no masses PELVIC: external genitalia normal, normal Bartholin's glands, urethra, [place]'s glands, no vulvar lesions, good vaginal support, physiologic discharge present, normal appearing perineal body and perianal region, cervix surgically absent BIMANUAL: no adnexal masses, non-tender, and uterus surgically absent RECTOVAGINAL: deferred. NEURO: alert and oriented x3,exam grossly non-focal EXTREMITIES: normal ASSESSMENT/PLAN: 1) Health maintenance: Pap/HPV screening no longer needed Mammogram ordered 2) Follow up one year or sooner as needed Shahbaz Ta MD [facility] History of Present illness Narrative 04-18-2023 Shahbaz Ta MD - 04/18/2023 1:54 PM EDT Note Date & Type Note Facility 04-18-2023 History of Presen t illness Narrative Antonina is a 58 year old who presents for an annual gynecologic exam without complaints. Postmenopausal: yes HRT use: No. Last Pap: 07/31/2018 normal HPV: 07/29/2018 negative History of abnormal pap: No Last mammogram: pending in 2 days History of abnormal mammogram: No Sexually active: Yes OB History T0 L4 SAB0 IAB0 Ectopic0 Multiple0 Live Births0 Glass Tinter History LMP: Hysterectomy Age at Menarche: Age at First : Age at Menopause: Glass Tinter History Comments: Sexual Activity: Yes; Male; Contraception: No contraception data on record PAST MEDICAL HISTORY Diagnosis Date Allergy, unspecified not elsewhere classified WHITNEY II (cervical intraepithelial neoplasia II) 2009 h/o persistent WHITNEY, Hypothyroid 2016 PAST SURGICAL HISTORY Procedure Laterality Date APPENDECTOMY 03/19 DELIVERY ONLY 1988 , low cervical COLONOSCOPY FLX DX W/COLLJ SPEC WHEN PFRMD 06/29/2014 Colonoscopy CORRECT BUNION,SIMPLE 2001 Bunion RIGHT HYSTERECTOMY & VAGINA REPAIR ENTEROCELE 2009 LAPAROSCOPY SURG CHOLECYSTECTOMY 1998 Cholecystectomy, lap LEEP PROCEDURE (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)_*FL 2008 LIG/TRNSXJ FLP TUBE ABDL/VAG APPR UNI/BI 1990 Tubal ligation PAST SURGICAL HISTORY OF 1990 CERVICAL LASER SURGERY SALPINGO-OOPHORECTOMY COMPL/PRTL UNI/BI SPX 03/19 Jvggqvnw-rtwiglacetop-tdmsi ovary FAMILY HISTORY Problem Relation Age of Onset Arthritis Mother rheumatoid and osteoarthritis Ovarian cancer Mother other (LUPUS) Mother other (Other) Mother benign brain tumor other (lung cancer) Father other (UTERINE CANCER) Maternal Grandmother Heart Maternal Grandfather other (LUPUS) Sister other (LUPUS) Maternal Aunt SOCIAL HISTORY Social History Tobacco Use Smoking status: Never Smokeless tobacco: Never Vaping Use Vaping Use: Never used Substance Use Topics Alcohol use: Yes Comment: occasional Drug use: No REVIEW OF SYSTEMS Abdomen: No abdominal pain, nausea, vomiting, diarrhea, or constipation. No bloating, early satiety, indigestion, or increased flatulence. Bladder: No dysuria, gross hematuria, urinary frequency, urinary urgency, or incontinence Breast: No breast lumps, nipple d/c, overlying skin changes, redness or skin retraction Allergies and current medication updated:Yes EXAM: There were no vitals taken for this visit. GENERAL: pleasant, female in no apparent distress HEENT: Normocephalic, atraumatic, mucus membranes moist, and no lesions NECK: Supple, full range of motion, no adenopathy, and thyroid normal DERMATOLOGY: Normal, without lesions, non-icteric, and non-hirsute BREAST: soft, non-tender, symmetric, no dominant mass, normal nipple-areolar complex, no lymphadenopathy, and no nipple discharge CHEST: Normal inspiratory effort ABDOMEN: soft, non-tender, and no masses PELVIC: external genitalia normal, normal Bartholin's glands, urethra, [place]'s glands, no vulvar lesions, good vaginal support, physiologic discharge present, normal appearing perineal body and perianal region, cervix surgically absent BIMANUAL: no adnexal masses, non-tender, and uterus surgically absent RECTOVAGINAL: deferred. NEURO: alert and oriented x3,exam grossly non-focal EXTREMITIES: normal ASSESSMENT/PLAN: 1) Health maintenance: Pap/HPV screening no longer needed Mammogram ordered 2) Follow up one year or sooner as needed Shahbaz Ta MD documented in this encounter [facility] History of Present illness Narrative 04-18-2022 Shahbaz aT MD - 04/18/2022 4:04 PM EDT Note Date & Type Note Facility 04-18-2022 History of Presen t illness Narrative Antonina is a 57 year old who presents for an annual gynecologic exam without complaints. Postmenopausal: yes HRT use: No. Last Pap: 07/31/2018 normal HPV: 07/29/2018 negative History of abnormal pap: No Last mammogram: 2021 normal History of abnormal mammogram: No Sexually active: Yes, some dryness OB History T0 L4 SAB0 IAB0 Ectopic0 Multiple0 Live Births0 Glass Tinter History LMP: Hysterectomy Age at Menarche: Age at First : Age at Menopause: Glass Tinter History Comments: Sexual Activity: Yes; Male; Contraception: No contraception data on record PAST MEDICAL HISTORY Diagnosis Date Allergy, unspecified not elsewhere classified WHITNEY II (cervical intraepithelial neoplasia II) 2009 h/o persistent WHITNEY, Hypothyroid 2016 PAST SURGICAL HISTORY Procedure Laterality Date APPENDECTOMY 03/19 DELIVERY ONLY 1988 , low cervical COLONOSCOPY FLX DX W/COLLJ SPEC WHEN PFRMD 06/29/2014 Colonoscopy CORRECT BUNION,SIMPLE 2001 Bunion RIGHT HYSTERECTOMY & VAGINA REPAIR ENTEROCELE 2010 LAPAROSCOPY SURG CHOLECYSTECTOMY 1998 Cholecystectomy, lap LEEP PROCEDURE (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)_*[place] 2008 LIG/TRNSXJ FLP TUBE ABDL/VAG APPR /1990 Tubal ligation PAST SURGICAL HISTORY OF 1990 CERVICAL LASER SURGERY SALPINGO-OOPHORECTOMY COMPL/PRTL UNI/BI SPX 03/19 Fnxqqaij-duushwgcorjk-xdbdu ovary FAMILY HISTORY Problem Relation Age of Onset Arthritis Mother rheumatoid and osteoarthritis Ovarian cancer Mother other (LUPUS) Mother other (Other) Mother benign brain tumor other (lung cancer) Father other (UTERINE CANCER) Maternal Grandmother Heart Maternal Grandfather other (LUPUS) Sister other (LUPUS) Maternal Aunt SOCIAL HISTORY Social History Tobacco Use Smoking status: Never Smoker Smokeless tobacco: Never Used Vaping Use Vaping Use: Never used Substance Use Topics Alcohol use: Yes Comment: occasional Drug use: No REVIEW OF SYSTEMS Abdomen: No abdominal pain, nausea, vomiting, diarrhea, or constipation. No bloating, early satiety, indigestion, or increased flatulence. Bladder: No dysuria, gross hematuria, urinary frequency, urinary urgency, or incontinence Breast: No breast lumps, nipple d/c, overlying skin changes, redness or skin retraction Allergies and current medication updated:Yes EXAM: BP 126/72 Ht 5' 2 (1.58m) Wt 165 lb (74.8kg) BMI 30.17 kg/(m^2). GENERAL: pleasant, female in no apparent distress HEENT: Normocephalic, atraumatic, mucus membranes moist and no lesions NECK: Supple, full range of motion, no adenopathy and thyroid normal DERMATOLOGY: Normal, without lesions, non-icteric and non-hirsute BREAST: soft, non-tender, symmetric, no dominant mass, normal nipple-areolar complex, no lymphadenopathy and no nipple discharge CHEST: Normal inspiratory effort ABDOMEN: soft, non-tender and no masses PELVIC: external genitalia normal, normal Bartholin's glands, urethra, [place]'s glands, no vulvar lesions, good vaginal support, physiologic discharge present, normal appearing perineal body and perianal region, cervix surgically absent BIMANUAL: no adnexal masses, non-tender and uterus surgically absent RECTOVAGINAL: deferred. NEURO: alert and oriented x3,exam grossly non-focal EXTREMITIES: normal ASSESSMENT/PLAN: 1) Health maintenance: Pap/HPV up to date. Mammogram ordered Colon cancer screening: up to date with screening 2) Follow up one year or sooner as needed Shahbaz Ta MD documented in this encounter [facility] Fall risk assessment 08-06-2017 Note Date & Type Note Facility Evaluation note Note Date & Type Note Facility documented in this encounter [facility] Evaluation note Note Date & Type Note Facility documented in this encounter [facility] Summary Purpose Family History No Family History Records Found Advance Directives No Advanced Directives Records Found Additional Source Comments Source Comments (unrecognize d section and content) In the event this informatio n is protected by the Federal Confidentiality of Alcohol and Drug Abuse Patient Records regulations: The Federal rules restrict any use of the information to criminally investigate or prosecute any alcohol or drug abuse patient.[facility] the event this information is protected by the Federal Confidentiality of Alcohol and Drug Abuse Patient Records regulations: The Federal rules restrict any use of the information to criminally investigate or prosecute any alcohol or drug abuse patient.[facility] Reason for Visit (unrecogniz ed section and content) Reason Comments [facility] Care Teams (unrecognized sec tion and content) [employer]mer Relationship Specialty Start Date End Date Francy Will DO [id number] [facility] [place] [address] PCP - General Family Medicine 04/15/18 INFORMATION SOURCE (unrecogn ized section and content) FOR RECORDS PERTAINING TO PATIENTS WHO ARE OR HAVE BEEN ENROLLED IN A CHEMICAL DEPENDENCY/SUBSTANCEABUSE PROGRAM, SOME INFORMATION MAY BE OMITTED. This clinical summary was aggregated from multiple sources. Caution should be exercised in using it in the provision of clinical care. This summary normalizes information from multiple sources, and as a consequence, information in this document may materially change the coding, format and clinical context of patient data. In addition, data may be omitted in some cases. CLINICAL DECISIONS SHOULD BE BASED ON THE PRIMARY CLINICAL RECORDS. [employer] [facility]. provides no warranty or guarantee of the accuracy or completeness of information in this document.
[2023-10-16 13:23] LABS: Absolute Lymphocyte Count 1.69 X10^3/uL (0.83-4.51); Absolute Neutrophil Count 3.2 X10^3/uL (2.0-7.7); Basophil# 0.04 X10^3/uL; Basophil% 0.7 % (0-1); Eosinophil# 0.15 X10^3/uL; Eosinophils% 2.7 % (0-5); Hematocrit 40.7 % (37-47); Hemoglobin 13.8 g/dL (12.0-15.0); Lymphocyte # 1.69 X10^3/ul (0.83-4.51); Lymphocyte % 30.8 % (19-41); Mean Corp Hgb Conc 33.9 g/dL (32-36); Mean Corpuscular Hgb 28.6 pg (27.0-32.0); Mean Corpuscular Volume 84.3 fL (81-99); Mean Platelet Vol. 9.9 fl (6.2-12.0); Monocyte# 0.38 X10^3/uL; Monocyte% 6.9 % (0-10); NRBC Flagged by Analyzer 0 % (0-5); Neutrophil # 3.22 X10^3/uL (2.7-7.7); Neutrophil % 58.7 % (47-70); Platelet Count 323 K/mm3 (150-450); RBC Distribution Width CV 12.5 % (11.6-14.6); RBC Distribution Width SD 38.3 fl (35.1-43.9); Red Blood Count 4.83 M/mm3 (4.2-5.4); White Blood Count 5.5 K/mm3 (4.4-11.0)
[2023-10-16 13:55] LABS: AST(SGOT) 25 U/L (15-37); Alanine Aminotransfer ALT/SGPT 49 U/L (13-56); Albumin, Serum 3.8 g/dL (3.2-5.0); Alkaline Phosphatase 93 U/L (45-117); Anion Gap 5 (5-15); BUN 10 mg/dL (7-18); BUN/Creat Ratio 13.7 RATIO (10-20); Calcium,Total 9.4 mg/dL (8.5-10.1); Chloride 105 mmol/L (98-107); Cholesterol 220 mg/dL (200); Creatinine, Serum 0.73 mg/dL (0.55-1.02); EST Glomerular Filtration Rate 87 mL/min (>60); Est Glom Filt Rate - Afr Amer 105 mL/min (>60); Free T3 2.7 pg/mL (2.18-3.98); Globulin 3.9 g/dL (2.2-4.2); Glucose 105 mg/dL (74-106); High Density Lipoprotein 42 mg/dL; Potassium 3.6 mmol/L (3.5-5.1); Protein, Total 7.7 g/dL (6.4-8.2); Sodium Level 140 mmol/L (136-145); T4 Free Direct 1.14 ng/dL (0.76-1.46); Thyroid Stim Hormone (TSH) 1.02 uIU/mL (0.358-3.74); Triglycerides 227 mg/dL; Very Low Density Lipoprotein 45 mg/dL (5-40)
== END | disposition home or self-care (01) ==
LOC: LAB 12:38
PROVIDERS: PCP Family Medicine; Referring Provider Family Medicine; Visit Provider Family Medicine
DX: Z00.00 Encounter for general adult medical examination without abnormal findings (principal); E03.9 Hypothyroidism, unspecified; E78.5 Hyperlipidemia, unspecified
CPT/HCPCS: 36415; 80053; 80061; 84439; 84443; 84481; 85025

== ENCOUNTER → 2024-08-29 | Outpatient (CLI) | payer OTHER, SELFPAY ==
--- NOTE | 2024-08-29 14:46 | BI_ITS ---
MAMMOGRAPHY - BILATERAL SCREENING REASON FOR EXAM: Female, 59 years old. Routine annual screening examination. PERTINENT HISTORY: Aunt with breast cancer. TECHNIQUE: Digital bilateral breast román (3D mammographic acquisition) in the CC and MLO projections. 2-D mediolateral oblique (MLO) and craniocaudad (CC) views of both breasts were obtained. CAD: Full Field Digital Mammography with Computer Added Detection was performed. COMPARISON: Comparison is made with prior study dated April 20, 2023 and April 13, 2022. FINDINGS: Breast Composition: The breasts are heterogeneously dense, which may obscure small masses. There are no dominant masses or suspicious calcifications. Stable small benign-appearing bilateral axillary lymph nodes. No other significant abnormalities are identified. There has been no significant change since the prior study. BI/SCRN MAMM (CAD)W/ROMÁN BILAT IMPRESSION: Stable bilateral screening mammogram. Yearly follow-up mammogram recommended. (A) ASSESSMENT CATEGORY: BIRADS Category 2: Benign. A letter regarding these results will be sent to the patient by the facility within 30 days. Approximately 10% of breast cancers are not detected by mammography. A normal mammogram should not delay biopsy of a clinically suspicious abnormality. [id number] Electronically Signed: Ishmael Moreira MD at 15:39 EST ,
== END | disposition home or self-care (01) ==
LOC: OPBI 14:45
PROVIDERS: PCP Family Medicine; Referring Provider Family Medicine; Visit Provider Family Medicine
DX: Z12.31 Encounter for screening mammogram for malignant neoplasm of breast (principal)
CPT/HCPCS: 77063; 77067

== ENCOUNTER → 2025-04-27 | Outpatient (CLI) | payer OTHER, SELFPAY | END | disposition home or self-care (01) | LOC: LABSPEC 11:20 | PROVIDERS: PCP Family Medicine; Visit Provider Family Medicine | DX: N39.0 Urinary tract infection, site not specified (principal) | CPT/HCPCS: 87077; 87086; 87088; 87186 ==

== ENCOUNTER → 2025-09-04 | Outpatient (CLI) | payer OTHER, SELFPAY ==
--- NOTE | 2025-09-04 14:57 | BI_ITS ---
EXAM: SCRN MAMM (CAD)W/ROMÁN BILAT DATE: 09/04/2025 CLINICAL HISTORY: F, Age 60 y/o , SCREENING TECHNIQUE: Procedure Code: [id number] Modality: MG Procedure: SCRN MAMM (CAD)W/ROMÁN BILAT COMPARISON: Prior exam(s) were compared FINDINGS: TISSUE DENSITY: The breasts are heterogeneously dense, which may obscure small masses. Bilateral Breast Mammographic Findings: No significant masses, calcifications or other abnormalities are identified. BI/SCRN MAMM (CAD)W/ROMÁN BILAT IMPRESSION: No mammographic evidence of malignancy in either breast. OVERALL FINAL ASSESSMENT BI-RADS 1: NEGATIVE. RECOMMENDATION: Routine annual follow-up in 1 Year Additional Recommendation none A letter with findings and recommendations will be mailed to the patient. Reading Location: [id number]
== END | disposition home or self-care (01) ==
LOC: OPBI 14:55
PROVIDERS: PCP Family Medicine; Referring Provider Obstetrics & Gynecology; Visit Provider Obstetrics & Gynecology
DX: Z12.31 Encounter for screening mammogram for malignant neoplasm of breast (principal)
CPT/HCPCS: 77063; 77067

== ENCOUNTER → 2025-09-23 | Outpatient (CLI) | payer OTHER, SELFPAY ==
[2025-09-23 11:08] LABS: Hematocrit 42.8 % (37-47); Hemoglobin 14.6 g/dL (12.0-15.0); Immature Granulocytes Count 0.010 X10^3/uL (0.0-0.0); Mean Corp Hgb Conc 34.1 g/dL (32-36); Mean Corpuscular Volume 83.4 fL (81-99); Mean Platelet Vol. 10.7 fl (6.2-12.0); NRBC Flagged by Analyzer 0 % (0-5); Platelet Count 270 K/mm3 (150-450); RBC Distribution Width CV 12.5 % (11.6-14.6); RBC Distribution Width SD 38.3 fl (35.1-43.9); Red Blood Count 5.13 M/mm3 (4.2-5.4); White Blood Count 4.9 K/mm3 (4.4-11.0)
[2025-09-23 11:33] LABS: AST(SGOT) 35 U/L (<=31); Alanine Aminotransfer ALT/SGPT 46 U/L (<=34); Albumin, Serum 4.5 g/dL (3.4-4.8); Alkaline Phosphatase 90 U/L (35-104); Anion Gap 12 (5-15); BUN 12 mg/dL (4-19); BUN/Creat Ratio 15.9 RATIO (10-20); Calcium,Total 9.9 mg/dL (7.6-11.0); Carbon Dioxide 25.3 mmol/L (21.0-32.0); Chloride 102 mmol/L (98-108); Cholesterol 232 mg/dL (<=200); Free T3 2.9 pg/mL (2.18-3.98); Globulin 3.1 g/dL (2.2-4.2); Glucose 110 mg/dL (70-99); Low Density Lipoprotein Calc. 158 mg/dL; Potassium 4.1 mmol/L (3.3-5.1); Triglycerides 150 mg/dL; Very Low Density Lipoprotein 30 mg/dL (5-40); cholesterol:hdl ratio screen 4.90
== END | disposition home or self-care (01) ==
LOC: VSLAB 07:57
PROVIDERS: PCP Family Medicine; Visit Provider Family Medicine
DX: Z00.00 Encounter for general adult medical examination without abnormal findings (principal); E03.9 Hypothyroidism, unspecified; E78.5 Hyperlipidemia, unspecified
CPT/HCPCS: 36415; 80053; 80061; 84439; 84443; 84481; 85025